=== PATIENT | female | born 1970 | race Caucasian/White ===

== ENCOUNTER → 2016-06-16 | Outpatient (CLI) | payer BC | LOC: BRMIMAGING 15:03 | PROVIDERS: ATTEND Physician Assistant Medical | DX: R05 Cough (principal); R07.89 Other chest pain | CPT/HCPCS: 71020-PO ==

== ENCOUNTER → 2018-01-08 | Outpatient (CLI) | payer BC | LOC: BRMIMAGING 14:51 | PROVIDERS: ATTEND Physician Assistant Medical | DX: Z12.31 Encounter for screening mammogram for malignant neoplasm of breast (principal) ==